=== PATIENT | female | born 1970 | race Caucasian/White ===

== ENCOUNTER 2019-04-15 14:42 | Inpatient (IN) | payer MEDICARE, MEDICAID ==
[~2019-04-15] VITALS: Ht 154.9 cm; Wt 74.8 kg
--- NOTE | 2019-04-15 14:42 | NUR ---
Pt ambulatory to room 1b, and nursnig staff at bedside.
--- NOTE | 2019-04-15 14:47 | NUR ---
Code Stroke activated by .
--- NOTE | 2019-04-15 14:50 | NUR ---
Called Telestroke line, to call back.
--- NOTE | 2019-04-15 14:51 | NUR ---
Pt to CT with ACLS guidelines in place.
--- NOTE | 2019-04-15 14:53 | NUR ---
PT TAKEN TO RADIOLOGY FOR CT SCAN ON PIPE STRESS ENGINEER.
--- NOTE | 2019-04-15 14:54 | NUR ---
RICKY CHEN SPEAKING W/ DR. WILSON ON PHONE.
[2019-04-15] MEDS ORDERED: GLIPIZIDE (14:58)
[2019-04-15] MEDS ORDERED: METFORMIN (14:58)
[2019-04-15] MEDS ORDERED: SWABABLE VALVE TRANSFER SET EA MC ONE (15:00)
[2019-04-15] MEDS ORDERED: IOHEXOL 350 100 ML INFUS..BTL ONE (15:00)
--- NOTE | 2019-04-15 15:08 | NUR ---
PT BACK IN ER FROM RADIOLOGY. CIVIL ENGINEERING DESIGNER AT BEDSIDE.
[2019-04-15] MEDS ORDERED: IV NORMAL SALINE 250 ML IV ONE (15:14)
--- NOTE | 2019-04-15 15:14 | NUR ---
TELE STROKE NEUROLOGIST EVALUATING PT.
[2019-04-15 15:17] LABS: BASOPHILS % (AUTO) 0.5 % (0.0-2.0); EOSINOPHILS # (AUTO) 0.2 K/uL (0.0-0.7); EOSINOPHILS % (AUTO) 2.3 % (0.0-7.0); HEMOGLOBIN 12.3 g/dL (10.9-14.3); LYMPHOCYTES # (AUTO) 2.7 K/uL (20.0-40.0); LYMPHOCYTES % (AUTO) 40.2 % (20.5-51.5); MEAN CORPUSCULAR HEMOGLOBIN 26.7 uug (24.7-32.8); MEAN CORPUSCULAR HGB CONC 32 g/dL (32.3-35.6); MEAN CORPUSCULAR VOLUME 82.7 fL (75.5-95.3); MONOCYTES # (AUTO) 0.5 K/uL (2.0-10.0); MONOCYTES % (AUTO) 6.8 % (0.0-11.0); NEUTROPHILS # (AUTO) 3.4 K/uL (1.8-8.9); NEUTROPHILS % (AUTO) 50.2 % (38.5-71.5); PLATELET COUNT (AUTO) 221 K/uL (179-408); RED BLOOD CELL COUNT(AUTO) 4.59 MIL/uL (3.63-4.92); WHITE BLOOD COUNT (AUTO) 6.7 K/uL (3.8-11.8)
[2019-04-15 15:25] LABS: CREATININE 0.7 mg/dL (0.6-1.3); POTASSIUM 3.8 mmol/L (3.5-5.1)
--- NOTE | 2019-04-15 15:26 | NUR ---
MAIA speaking with Dr. Knight (TELESTROKE)
--- NOTE | 2019-04-15 15:40 | NUR ---
RICKY CHEN AT BEDSIDE FOR PT UPDATE.
--- NOTE | 2019-04-15 16:32 | NUR ---
PAGED EPIC FOR PANEL CALL - AWAITING CALLBACK. ATTEMPT 1.
--- NOTE | 2019-04-15 16:42 | NUR ---
ER SPEAKING W/ DR. REDDING RE PT'S ADMISSION.
--- NOTE | 2019-04-15 16:58 | NUR ---
ADMITTING REPORT GIVEN TO DICK IVERSON.
[2019-04-15] MEDS ORDERED: ASPIRIN 325 MG TABLET PO ONE (17:00)
[2019-04-15] MEDS ORDERED: ASPIRIN 325 MG TABLET ONE (17:10)
--- NOTE | 2019-04-15 17:11 | NUR ---
Pt. admitted to TELE 316, under care of Dr. WONG. Belongs List completed
[2019-04-15 17:30] VITALS: BP 147/85
--- NOTE | 2019-04-15 17:38 | NUR ---
ADMITTED FROM HOME VIA ER A 48 YO FEMALE WITH ADMITTING DX OF CVA. AWAKE ALERT AND ORIENTED X3, ABLE TO AMBULATE FROM WITH STEADY GAIT, NO SS OF HEADACHE, DIZZINESS, N/V. STROKE PROTOCOL INITIATED, SR ON MONITOR. WILL NOTIFY DR Eusebio WONG OF ADMISSION
--- NOTE | 2019-04-15 17:50 | NUR ---
TEXTED DR. OLMOS FOR MRI APPROVAL.
--- NOTE | 2019-04-15 17:54 | NUR ---
DR. OLMOS TEXTED BACK, ON HOLD FOR NOW HE WILL LET US KNOW
[2019-04-15 18:17] LABS: ALANINE AMINOTRANSFERASE 15 U/L (14-59); ALKALINE PHOSPHATASE 91 U/L (50-136); ASPARTATE AMINOTRANSFERASE 6 U/L (15-37); BILIRUBIN,DIRECT < 0.1 mg/dL (0.0-0.2); BILIRUBIN,TOTAL 0.1 mg/dL (0.2-1.0); TOTAL PROTEIN, SERUM 6.5 g/dL (6.4-8.2)
[2019-04-15 18:38] LABS: THYROID STIMULATING HORMONE 2.122 mIU/mL (0.358-3.740)
[2019-04-15] MEDS ORDERED: LORAZEPAM 1 MG TABLET PO ONE (19:00)
[2019-04-15 20:17] VITALS: BP 121/78
[2019-04-15] MEDS: BLOOD SUGAR DIAGNOSTIC 1 EACH STRIP VI SCH (20:41)
[2019-04-15] MEDS ORDERED: SIMVASTATIN 40 MG TABLET PO SCH (21:00)
[2019-04-15] MEDS ORDERED: ENOXAPARIN SODIUM 40 MG/0.4 ML DISP.SYRIN SQ SCH (21:00)
--- NOTE | 2019-04-15 21:10 | NUR ---
PATIENT ALERT ORIENTED, NO SOB NO CHEST PAIN, TELE MONITOR SINUS RHYTHM. 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 FAMILY AT BEDSIDE.
--- NOTE | 2019-04-15 22:30 | NUR ---
PATIENT WAS BACK FROM MRI, IN FAIR CONDITION. CONT TO MONITOR.
[2019-04-16 00:05] VITALS: BP 125/62
[2019-04-16 00:06] LABS: *BILIRUBIN,URIN NEGATIVE (NEGATIVE); *BLOOD, URINE NEGATIVE (NEGATIVE); *CLARITY,URINE CLEAR (CLEAR); *COLOR,URINE YELLOW (YELLOW); *KETONES,URINE TRACE (NEGATIVE); *UROBILINOGEN,URINE 0.2 E.U./dl (NORMAL); LEUKOCYTE ESTERASE ,URINE NEGATIVE (NEGATIVE); NITRITE, URINE NEGATIVE (NEGATIVE)
[2019-04-16 00:07] LABS: UGLUCOSE 1+ (NEGATIVE)
[2019-04-16 00:12] LABS: BACTERIA,URINE NONE SEEN /HPF (NONE SEEN); CALCIUM OXALATE CRYSTALS,UR MODERATE /HPF (NONE SEEN); RBC,URINE NONE SEEN /HPF (0-3); SQUAMOUS EPITHELIAL CELL,UR MODERATE /HPF (NONE SEEN); WBC,URINE 0-3 /HPF (0-3)
[2019-04-16 00:21] LABS: *AMPHETAMINE, URINE NEGATIVE (NEGATIVE); *BARBITURATE, URINE NEGATIVE (NEGATIVE); *CANNABINOID, URINE NEGATIVE (NEGATIVE); *COCCAINE, URINE NEGATIVE (NEGATIVE); *OPIATE, URINE NEGATIVE (NEGATIVE); *PHENCYCLIDINE SCREEN,URINE NEGATIVE (NEGATIVE)
[2019-04-16 04:00] VITALS: BP 160/72
[2019-04-16 06:30] LABS: BASOPHILS % (AUTO) 0.5 % (0.0-2.0); EOSINOPHILS # (AUTO) 0.1 K/uL (0.0-0.7); EOSINOPHILS % (AUTO) 2.4 % (0.0-7.0); HEMATOCRIT 39.7 % (31.2-41.9); HEMOGLOBIN 12.9 g/dL (10.9-14.3); LYMPHOCYTES # (AUTO) 2.3 K/uL (20.0-40.0); MEAN CORPUSCULAR HEMOGLOBIN 27.1 uug (24.7-32.8); MEAN CORPUSCULAR HGB CONC 32 g/dL (32.3-35.6); MEAN CORPUSCULAR VOLUME 83.6 fL (75.5-95.3); MONOCYTES # (AUTO) 0.3 K/uL (2.0-10.0); MONOCYTES % (AUTO) 6.5 % (0.0-11.0); NEUTROPHILS # (AUTO) 2.4 K/uL (1.8-8.9); NEUTROPHILS % (AUTO) 45.6 % (38.5-71.5); PLATELET COUNT (AUTO) 212 K/uL (179-408); RED BLOOD CELL COUNT(AUTO) 4.75 MIL/uL (3.63-4.92); WHITE BLOOD COUNT (AUTO) 5.2 K/uL (3.8-11.8)
[2019-04-16 06:31] LABS: CREATININE 0.6 mg/dL (0.6-1.3); POTASSIUM 3.7 mmol/L (3.5-5.1)
[2019-04-16] MEDS: BLOOD SUGAR DIAGNOSTIC 1 EACH STRIP VI SCH (07:40)
--- NOTE | 2019-04-16 07:41 | NUR ---
ALERT AWAKE NO SOB NO CHEST PAIN, CONT TO MONITOR.
--- NOTE | 2019-04-16 08:00 | NUR ---
AWAKE ALERT AND ORIENTED X3 NO SS OF PAIN OR SOB, PER PATIENT NUMBNESS LEFT ARM FEEL BETTER. SR ON MONITOR, RA SATURATION 97%. CLOSELY MONITORED
[2019-04-16] MEDS ORDERED: ASPIRIN EC 81 MG TABLET.DR PO SCH (09:00)
[2019-04-16] MEDS ORDERED: DEXTROSE 50% 50 ML DISP.SYRIN IV PRN (10:30)
[2019-04-16] MEDS ORDERED: INSULIN REGULAR, HUMAN 300 UNIT/3 ML VIAL SQ PRN (10:30)
[2019-04-16] MEDS ORDERED: CARBAMAZEPINE 200 MG TABLET PO SCH ×3 (10:45→21:00)
[2019-04-16] MEDS ORDERED: GABAPENTIN 300 MG CAPSULE PO SCH ×2 (10:45→21:00)
--- NOTE | 2019-04-16 11:00 | NUR ---
SEEN BY Yohana THURSTON, MADE AWARE OF RAPID RESPONSE LAST NIGHT AND HYPOTENSION DURING PHYSICAL THERAPY SEE NOTES. WILL CONTINUE TO OBSERVE Addendum: 04/16/19 at 1406 by TERESA LESLIE RN ERROR
[2019-04-16 11:01] VITALS: BP 141/76
[2019-04-16] MEDS ORDERED: BLOOD SUGAR DIAGNOSTIC 1 EACH STRIP VI SCH (11:30)
[2019-04-16] MEDS ORDERED: SIMV40TA5 PO (12:00)
[2019-04-16] MEDS ORDERED: ASPI-618 PO (12:00)
--- NOTE | 2019-04-16 12:10 | NUR ---
1200 TEGRETOL NOT GIVEN DUE TO FIRST DOSE GIVEN AT 1121
--- NOTE | 2019-04-16 16:10 | NUR ---
Patient discharged. Discharge instructions reviewed, patient verbalized understanding. IV access and wristband removed.
[2019-04-16] MEDS ORDERED: METFORMIN HCL 500 MG TABLET PO SCH (18:00)
[2019-04-17] MEDS ORDERED: GLIMEPIRIDE 4 MG TABLET PO SCH (08:00)
== END 2019-04-16 16:10 | disposition home or self-care (01) | DRG 69 ==
LOC: ER 14:42 → TELE3 17:16 → UNDODISIN 04-16 13:24 → MEDSURG3 04-16 13:37
DX: G45.9 Transient cerebral ischemic attack, unspecified (principal); R47.01 Aphasia; G40.909 Epilepsy, unspecified, not intractable, without status epilepticus; E11.9 Type 2 diabetes mellitus without complications; E66.9 Obesity, unspecified; R29.700 NIHSS score 0; Z79.84 Long term (current) use of oral hypoglycemic drugs; G93.89 Other specified disorders of brain; E78.1 Pure hyperglyceridemia; I69.398 Other sequelae of cerebral infarction; O02.1 Missed abortion; Q17.9 Congenital malformation of ear, unspecified
CPT/HCPCS: 36415; 70030-TC; 70450; 70496; 70551; 71045; 80307; 84443; 85025; 85651; 85730; 92526; 92610; 93005; 93307; 97116; 97165; 97530; 97535; A4663; G0378; J1650; J1815; J7050; Q9967

== ENCOUNTER 2020-02-05 09:18 | Emergency (ER) | payer MEDICARE, OTHER ==
[~2020-02-05] VITALS: Ht 154.9 cm; Wt 74.8 kg
--- NOTE | 2020-02-05 09:32 | NUR ---
@bedside, MSE in progress
--- NOTE | 2020-02-05 09:42 | NUR ---
Patient discharged to home in stable condition & steady gait. Written and verbal after care instructions given to patient. Patient verbalized understanding & compliance of instructions.
== END 2020-02-05 09:43 | disposition home or self-care (01) ==
LOC: ER 09:18
DX: B30.8 Other viral conjunctivitis (principal); E11.9 Type 2 diabetes mellitus without complications; Z79.82 Long term (current) use of aspirin
CPT/HCPCS: A4663

== ENCOUNTER 2021-05-15 12:37 | Inpatient (IN) | payer MEDICARE, OTHER ==
[~2021-05-15] VITALS: Ht 152.4 cm; Wt 79.4 kg
[~2021-05-15 12:37] MED LIST: ASPI-618 PO; GLIPIZIDE; METFORMIN PO; SIMV-49 PO
--- NOTE | 2021-05-15 12:57 | NUR ---
DR MCMAHAN AT BEDSIDE FOR EVALUATION.
[2021-05-15 13:29] LABS: HEMATOCRIT 36.8 % (31.2-41.9); MEAN CORPUSCULAR HEMOGLOBIN 27.6 uug (24.7-32.8); MEAN CORPUSCULAR VOLUME 83.8 fL (75.5-95.3); PLATELET COUNT (AUTO) 221 K/uL (179-408)
[2021-05-15 13:42] LABS: ALANINE AMINOTRANSFERASE 24 U/L (14-59); ALKALINE PHOSPHATASE 94 U/L (50-136); ASPARTATE AMINOTRANSFERASE 12 U/L (15-37); BILIRUBIN,DIRECT < 0.1 mg/dL (0.0-0.2); BILIRUBIN,TOTAL 0.1 mg/dL (0.2-1.0); CARBON DIOXIDE 27 mmol/L (21-32); CHLORIDE 102 mmol/L (98-107); CREATININE 0.7 mg/dL (0.6-1.3); GLUCOSE 247 mg/dL (74-106); LIPASE 74 U/L (73-393); POTASSIUM 3.7 mmol/L (3.5-5.1); TOTAL PROTEIN, SERUM 6.8 g/dL (6.4-8.2); UREA NITROGEN, BLOOD 19 mg/dL (7-18)
[2021-05-15 14:35] LABS: *BILIRUBIN,URIN NEGATIVE (NEGATIVE); *BLOOD, URINE NEGATIVE (NEGATIVE); *COLOR,URINE YELLOW (YELLOW); *KETONES,URINE TRACE (NEGATIVE); *UROBILINOGEN,URINE 0.2 E.U./dl (NORMAL); LEUKOCYTE ESTERASE ,URINE NEGATIVE (NEGATIVE); NITRITE, URINE NEGATIVE (NEGATIVE); PH,URINE 5.5 (5.0-8.0)
[2021-05-15 14:39] LABS: UGLUCOSE 3+ (NEGATIVE)
[2021-05-15 14:42] LABS: *CLARITY,URINE HAZY (CLEAR); BACTERIA,URINE FEW /HPF (NONE SEEN); RBC,URINE 0-3 /HPF (0-3); SQUAMOUS EPITHELIAL CELL,UR MODERATE /HPF (NONE SEEN); URINE AMORPHOUS URATE FEW /HPF
[2021-05-15] MEDS ORDERED: MECLIZINE HCL 25 MG TABLET PO ONE (15:00)
[2021-05-15] MEDS ORDERED: MECLIZINE HCL 25 MG TABLET ONE (15:01)
[2021-05-15] MEDS ORDERED: IOHEXOL 350 100 ML INFUS..BTL ONE (19:16)
--- NOTE | 2021-05-15 19:30 | NUR ---
Pt taken down for CT
--- NOTE | 2021-05-15 19:53 | NUR ---
Pt returned from CT stable condition.
[2021-05-15] MEDS ORDERED: SIMVASTATIN 40 MG TABLET PO SCH (21:00)
[2021-05-15] MEDS ORDERED: SIMVASTATIN 40 MG TABLET ONE (21:25)
--- NOTE | 2021-05-15 21:59 | NUR ---
Gave report to Will digital producer.
--- NOTE | 2021-05-15 22:40 | NUR ---
Pt. admitted to Med Surg , under care of EYE GLASS FRAME POLISHER Roberto Alcantar Dx: intractable vertigo Belongs List completed
--- NOTE | 2021-05-15 22:41 | NUR ---
PATIENT ALERT ORIENTED, NO SOB NO CHEST PAIN, PATIENT HAS NO COMPLAIN OF DIZZINESS AT THIS TIME. PATIENT NO COMPLAIN OF PAIN, CALL LIGHT WITHIN REACH.
[2021-05-15] MEDS ORDERED: ACETAMINOPHEN 325 MG TABLET PO PRN (23:00)
[2021-05-15] MEDS ORDERED: DIAZEPAM 5 MG TABLET PO PRN (23:00)
[2021-05-15] MEDS ORDERED: MECLIZINE HCL 25 MG TABLET PO PRN (23:00)
[2021-05-15] MEDS ORDERED: IV NS 1000 ML 1,000 ML IV PRN (23:00)
[2021-05-15] MEDS ORDERED: ONDANSETRON 4 MG/2 ML VIAL IV PRN (23:00)
[2021-05-15 23:14] VITALS: BP 149/73
[2021-05-16 05:05] VITALS: BP 148/55
--- NOTE | 2021-05-16 06:28 | NUR ---
PATIENT ASLEEP BUT AROUSABLE NO COMPLAIN OF PAIN, NO VERTIGO OR DIZZINESS AT THIS TIME, PATIENT CLAIMED THAT SHE HAD BUZZING SOUND ON HER HEAR BEFORE SHE CAME IN TO THE THE ER. CONT TO MONITOR. VOIDING WELL.
[2021-05-16 06:31] LABS: HEMATOCRIT 38.8 % (31.2-41.9); PLATELET COUNT (AUTO) 224 K/uL (179-408)
[2021-05-16 06:53] LABS: ALANINE AMINOTRANSFERASE 19 U/L (14-59); ALKALINE PHOSPHATASE 94 U/L (50-136); ASPARTATE AMINOTRANSFERASE 12 U/L (15-37); BILIRUBIN,TOTAL 0.1 mg/dL (0.2-1.0); CARBON DIOXIDE 29 mmol/L (21-32); CHLORIDE 107 mmol/L (98-107); CHOLESTEROL 229 mg/dL (<200); CREATININE 0.5 mg/dL (0.6-1.3); GLUCOSE 235 mg/dL (74-106); HDL CHOLESTEROL 53 mg/dL (40-60); PHOSPHOROUS 3.6 mg/dL (2.5-4.9); POTASSIUM 3.9 mmol/L (3.5-5.1); TOTAL PROTEIN, SERUM 6.7 g/dL (6.4-8.2); TRIGLYCERIDES 300 MG/DL (30-150); UREA NITROGEN, BLOOD 11 mg/dL (7-18)
--- NOTE | 2021-05-16 08:00 | NUR ---
RECEIVED CHANGE OF SHIFT REPORT, PT IN BED RESTING, C/O DIZZINESS, PT A/OX4, ON ROOM AIR, NO SIGNS OF DISTRESS, NO REPORTS OF PAIN, CALL LIGHT WITHIN REACH, BED LOW AND LOCKED. PT AMB WITH STEADY GAIT, BRP, IV ON THE RIGHT FA 22G INFUSING NS AT 75CC. WILL CONTINUE WITH PLAN OF CARE.
[2021-05-16 08:04] VITALS: BP 144/79
[2021-05-16 11:08] VITALS: BP 150/78
[2021-05-16] MEDS ORDERED: MECL-159 PO (11:09)
[2021-05-16 15:38] VITALS: BP 126/64
--- NOTE | 2021-05-16 19:14 | NUR ---
pt discharged form hospital with all belongings. pt ambulatory, vitals WNL, on room air, no signs of distress, no reports of pain. pt left via private car with friend. pt given exit care instructions, pt verbalized understanding. all needs met this shift, all medications given as ordered.
== END 2021-05-16 18:30 | disposition home or self-care (01) | DRG 149 ==
LOC: ER 12:37 → MEDSURG3 22:12
PROVIDERS: ADMIT Nurse Practitioner Acute Care; ATTEND Nurse Practitioner Acute Care
DX: H81.10 Benign paroxysmal vertigo, unspecified ear (principal); E87.2 Acidosis; Z86.73 Personal history of transient ischemic attack (TIA), and cerebral infarction without residual deficits; Z79.84 Long term (current) use of oral hypoglycemic drugs; E66.9 Obesity, unspecified; E78.5 Hyperlipidemia, unspecified; G93.89 Other specified disorders of brain; Z79.82 Long term (current) use of aspirin; Z20.822 Contact with and (suspected) exposure to COVID-19; E11.65 Type 2 diabetes mellitus with hyperglycemia; Z68.34 Body mass index [BMI] 34.0-34.9, adult
CPT/HCPCS: 36415; 70030-TC; 70450; 70496; 71045; 83605; 83690; 83735; 84100; 85025; 87086; 93005; A4663; G0378; J7030; J8597; Q9967

== ENCOUNTER 2021-10-22 09:59 | Inpatient (IN) | payer MEDICARE, OTHER ==
[~2021-10-22] VITALS: Ht 154.9 cm; Wt 68.7 kg
[~2021-10-22 09:59] MED LIST changes: -ASPI-618 PO; -GLIPIZIDE; +MECL-159 PO
[2021-10-22] MEDS ORDERED: ASPIRIN 81 MG TAB.CHEW PO ONE (10:00)
--- NOTE | 2021-10-22 10:01 | NUR ---
DR. SOLORIO ACTIVATED CODE STROKE
--- NOTE | 2021-10-22 10:06 | NUR ---
tele neurology activated.
--- NOTE | 2021-10-22 10:06 | NUR ---
tele neurology activated.
--- NOTE | 2021-10-22 10:08 | NUR ---
pt to ct.
[2021-10-22 10:11] LABS: HEMATOCRIT 40.2 % (31.2-41.9); MEAN CORPUSCULAR HEMOGLOBIN 26.8 uug (24.7-32.8); MEAN CORPUSCULAR VOLUME 82.2 fL (75.5-95.3); PLATELET COUNT (AUTO) 227 K/uL (179-408)
[2021-10-22] MEDS ORDERED: IOHEXOL 350 100 ML INFUS..BTL ONE (10:21)
[2021-10-22] MEDS ORDERED: IV NORMAL SALINE 250 ML IV ONE (10:21)
[2021-10-22] MEDS ORDERED: SWABABLE VALVE TRANSFER SET EA MC ONE (10:21)
--- NOTE | 2021-10-22 10:25 | NUR ---
Anthony lloyd in EDM - 10/22/21 at [address] MACIEL FROM TELE STROKE CALLED, TALKED TO RICKY RODRÍGUEZ
--- NOTE | 2021-10-22 10:25 | NUR ---
DR. MACIEL, NEUROLOGIST CALLED AND TALKED TO RICKY CHEN.
[2021-10-22 10:28] LABS: ALANINE AMINOTRANSFERASE 186 U/L (14-59); ALKALINE PHOSPHATASE 135 U/L (50-136); ASPARTATE AMINOTRANSFERASE 83 U/L (15-37); BILIRUBIN,TOTAL 0.2 mg/dL (0.2-1.0); CARBON DIOXIDE 27 mmol/L (21-32); CHLORIDE 98 mmol/L (98-107); CHOLESTEROL 197 mg/dL (<200); CREATININE 0.8 mg/dL (0.6-1.3); HDL CHOLESTEROL 76 mg/dL (40-60); POTASSIUM 4.4 mmol/L (3.5-5.1); TOTAL PROTEIN, SERUM 7.7 g/dL (6.4-8.2); TRIGLYCERIDES 91 MG/DL (30-150); UREA NITROGEN, BLOOD 16 mg/dL (7-18)
--- NOTE | 2021-10-22 10:28 | NUR ---
PT BACK FROM CT. TELE MED NEUROLOGIST COMMUNICATING WITH PT VIA TELE STROKE MONITOR.
[2021-10-22 10:29] LABS: BILIRUBIN,DIRECT < 0.1 mg/dL (0.0-0.2)
[2021-10-22 10:30] LABS: GLUCOSE 412 mg/dL (74-106)
[2021-10-22] MEDS ORDERED: INSULIN REGULAR, HUMAN 300 UNIT/3 ML VIAL SQ ONE (10:45)
[2021-10-22] MEDS ORDERED: ASPIRIN EC 81 MG TABLET.DR PO ONE (10:48)
[2021-10-22] MEDS ORDERED: ASPIRIN 81 MG TAB.CHEW ONE (10:49)
--- NOTE | 2021-10-22 10:54 | NUR ---
PT'S SON AT BEDSIDE.
[2021-10-22] MEDS ORDERED: INSULIN REGULAR, HUMAN 300 UNIT/3 ML VIAL ONE (10:55)
--- NOTE | 2021-10-22 11:14 | NUR ---
BEDPAN PROVIDED FOR PT PER REQUEST, PT ABLE TO LIFT/MOVE ALL THE EXTREMETIES TO ACCOMMODATE BED CONWAY PLACEMENT, URINE SENT TO LAB.
[2021-10-22] MEDS ORDERED: GABA300C PO (11:19)
[2021-10-22] MEDS ORDERED: METF-442 PO (11:19)
[2021-10-22] MEDS ORDERED: GLIM4TAB37 PO (11:19)
[2021-10-22] MEDS ORDERED: HUM100IN SQ (11:19)
[2021-10-22] MEDS ORDERED: ATOR40TA PO (11:19)
[2021-10-22] MEDS ORDERED: ACAR50TA4 PO (11:19)
[2021-10-22] MEDS ORDERED: CARB200T PO ×2 (11:19)
[2021-10-22 11:32] LABS: *AMPHETAMINE, URINE NEGATIVE (NEGATIVE); *CANNABINOID, URINE NEGATIVE (NEGATIVE); *COCCAINE, URINE NEGATIVE (NEGATIVE); *OPIATE, URINE NEGATIVE (NEGATIVE); *PHENCYCLIDINE SCREEN,URINE NEGATIVE (NEGATIVE)
--- NOTE | 2021-10-22 12:27 | NUR ---
PT RESTING, AROUSABLE. NO SIGN OF DISTRESS AT THIS POINT.
--- NOTE | 2021-10-22 12:56 | NUR ---
PT FAMILY MEMBER AT BEDSIDE, TALKING TO PT. EARINGS AND PT'S MED BOTTLES SENT HOME WITH FAMILY MEMBER.
--- NOTE | 2021-10-22 13:16 | NUR ---
PT TRANSFERED TO FLOOR IN STABLE CONDITION.
[2021-10-22 14:00] VITALS: BP 134/69
--- NOTE | 2021-10-22 14:00 | NUR ---
Left side weakness noted. unable to recognize any facial drooping. Skin dry and intact. Plan of care implemented for fall precautions. Pt agreeable with plan. Call light is within reach.
[2021-10-22 16:00] VITALS: BP 141/69
[2021-10-22] MEDS ORDERED: DEXTROSE 50% 50 ML DISP.SYRIN IV PRN (16:45)
[2021-10-22] MEDS ORDERED: ACARBOSE 50 MG TABLET PO SCH ×2 (17:00)
--- NOTE | 2021-10-22 17:00 | NUR ---
Notified pt and family to bring own meds acarbose. Verbalized understanding and agreeable.
[2021-10-22] MEDS: GABAPENTIN 300 MG CAPSULE PO SCH (17:38)
[2021-10-22] MEDS: BLOOD SUGAR DIAGNOSTIC 1 EACH STRIP VI SCH ×2 (17:43→20:51)
[2021-10-22] MEDS: INSULIN REGULAR, HUMAN 300 UNIT/3 ML VIAL SQ PRN ×2 (17:44→20:31)
[2021-10-22] MEDS: CARBAMAZEPINE 200 MG TABLET PO SCH ×2 (17:45→21:02)
[2021-10-22] MEDS: ENOXAPARIN SODIUM 40 MG/0.4 ML DISP.SYRIN SQ SCH (17:50)
[2021-10-22] MEDS: DIAZEPAM 5 MG TABLET PO PRN ×2 (18:07→20:08)
--- NOTE | 2021-10-22 19:30 | NUR ---
Received patient resting in bed. AA) x4, she is east timorese speaking. States she began to feel ill during work. Began to trip on her own feet, feel sleepy, have back pain and dizziness. She has HX of epilepsy, DM, and previous CVA (April 2020). 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 States weakness to left side is increased as of this morning. No visual changes noted on assessment, there is facial symmetry, no drooping noted. States she was able to ambulate with assist earlier this shift. Son will bring Acarbose tomorrow. Needs assessed and met. Safety measures initiated, call light within reach.
[2021-10-22 20:20] VITALS: BP 136/72
[2021-10-22] MEDS ORDERED: BLOOD SUGAR DIAGNOSTIC 1 EACH STRIP VI SCH (21:00)
[2021-10-22] MEDS ORDERED: ATORVASTATIN 40 MG TABLET PO SCH (21:00)
[2021-10-23 04:20] VITALS: BP 103/62
[2021-10-23] MEDS: CARBAMAZEPINE 200 MG TABLET PO SCH ×2 (06:17→12:00)
[2021-10-23] MEDS: DIAZEPAM 5 MG TABLET PO PRN (06:17)
[2021-10-23] MEDS: PANTOPRAZOLE SODIUM 40 MG TABLET.DR PO SCH ×2 (06:17→08:20)
[2021-10-23] MEDS: BLOOD SUGAR DIAGNOSTIC 1 EACH STRIP VI SCH ×4 (06:30→20:57)
--- NOTE | 2021-10-23 06:43 | NUR ---
Slept well this shift. AAO x4, Neuro checks continued. Continues with left side weakness. Seizure, fall precautions, and safety measures continued. ON RA, no SOB. On telemetry, NSR HR 70, no abnormalities this shift. C/O headache and dizziness this AM, Valium Po provided. Call light within reach.
[2021-10-23 07:16] LABS: MEAN CORPUSCULAR HEMOGLOBIN 26.8 uug (24.7-32.8); MEAN CORPUSCULAR VOLUME 81.1 fL (75.5-95.3); PLATELET COUNT (AUTO) 235 K/uL (179-408)
[2021-10-23 07:29] LABS: CARBON DIOXIDE 28 mmol/L (21-32); CHLORIDE 101 mmol/L (98-107); CREATININE 0.5 mg/dL (0.6-1.3); GLUCOSE 196 mg/dL (74-106); POTASSIUM 3.8 mmol/L (3.5-5.1); UREA NITROGEN, BLOOD 11 mg/dL (7-18)
--- NOTE | 2021-10-23 07:36 | NUR ---
Received patient report from slot shift supervisor nurse. Patient is alert, oriented x 4. Comfort measures provided. Bed left in lowest position with call light within reach. Will continue to monitor patient. Patient scheduled to receive MRI w/ no contrast at [facility]. IV site intact and patent.
[2021-10-23 08:00] VITALS: BP 145/77
[2021-10-23] MEDS: ASPIRIN EC 81 MG TABLET.DR PO SCH (08:19)
[2021-10-23] MEDS: DOCUSATE SODIUM 100 MG CAPSULE PO SCH (08:20)
[2021-10-23] MEDS: GABAPENTIN 300 MG CAPSULE PO SCH (08:20)
[2021-10-23] MEDS: INSULIN REGULAR, HUMAN 300 UNIT/3 ML VIAL SQ PRN ×2 (08:38→11:40)
[2021-10-23] MEDS ORDERED: diphenhydrAMINE 50 MG/1 ML VIAL IM ONE (09:00)
[2021-10-23] MEDS ORDERED: GLIMEPIRIDE 4 MG TABLET PO SCH (09:00)
[2021-10-23] MEDS ORDERED: PROCHLORPERAZINE EDISYLATE 10 MG/2 ML VIAL IM ONE (09:00)
[2021-10-23] MEDS: ENOXAPARIN SODIUM 40 MG/0.4 ML DISP.SYRIN SQ SCH (09:33)
[2021-10-23 11:28] LABS: *URINE HCG, QUAL POSITIVE (NEGATIVE)
--- NOTE | 2021-10-23 12:02 | NUR ---
Patient left the unit at 11:45 am for MRI in the head at [facility]. MAVERICK Motta from [employer] arrived in the unit to pick patient up and take her to her appointment.
--- NOTE | 2021-10-23 13:17 | NUR ---
Patient came back to the unit at 13:15 from [place] for MRI (head).
--- NOTE | 2021-10-23 14:52 | NUR ---
UA was collected at 11:00 am and sent it to lab.
--- NOTE | 2021-10-23 15:01 | NUR ---
Received patient awake in her room. A/O X 4 to person, place, situation. pt. affect is cooperative and sociable. Compliant with medications. Pt. was given PRN Benadryl 25 mg IM and Compazine 10 mg IM for headache ordered by boris Wallis. Ecocardiogram was done at 14:30. MRI results presents no abnormalities. Carotids results presents no abnormalities. Blood glucose 319, 16 units given, snacks provided. Ambulates with walker. Continent of bladder and bowel. Pt. is encourage to verbalize concerns. Fall and safety precautions implemented.
--- NOTE | 2021-10-23 15:59 | NUR ---
Clinical Social Work Note SW consult was requested for a stroke. Patient is a 50 year old female who is alert and oriented x4. Patient presents with a normal mood and congruent affect. SW meet with patient and conducted the PHQ9 post stroke depression screening and patient scored (3) and patient was provided with educational resources. Personal Service Representative informed about the importance of stroke. Patient accepted stroke referrals such as: Stroke Family Warmline at (2-092-2-STROKE) and Caring for a stroke survivor ( ). licensed social worker also educated patient on the signs of Stroke and to immediately call 911. Personal Service Representative provided patient with a stroke educational packet with information such as; Dietary food, what stroke is, risks, emotional support, finding support, medical management, and effects of stroke.
[2021-10-23 16:00] VITALS: BP 129/77
[2021-10-23] MEDS: INSULIN REGULAR, HUMAN 300 UNITS/3 ML VIAL SQ PRN ×2 (17:07→20:59)
--- NOTE | 2021-10-23 17:08 | NUR ---
Patient blood glucose is 262, 6 units of regular insulin given per sliding scale.
--- NOTE | 2021-10-23 19:30 | NUR ---
Received patient resting in bed. AAO x4, iranian speaking. States weakness to left side is less than yesterday. Also states she is free of headache and has only minimal dizziness. No visual changes noted on assessment, there is facial symmetry, no drooping noted. States she was able to ambulate with assist using walker. On RA, no SOB. Needs assessed and met. Safety measures initiated, call light within reach.
[2021-10-23 20:25] VITALS: BP 132/65
[2021-10-24 00:06] VITALS: BP 120/73
[2021-10-24 04:20] VITALS: BP 137/70
--- NOTE | 2021-10-24 05:57 | NUR ---
Slept well, easily woken. Denies any pain or discomfort. Per patient weakness to left side is improving, Neuro checks unchanged. On Telemetry, NSR HR 70. Call light within reach.
[2021-10-24] MEDS: BLOOD SUGAR DIAGNOSTIC 1 EACH STRIP VI SCH ×2 (06:31→11:28)
[2021-10-24 08:30] VITALS: BP 132/84
[2021-10-24] MEDS: DOCUSATE SODIUM 100 MG CAPSULE PO SCH (09:04)
[2021-10-24] MEDS: ASPIRIN EC 81 MG TABLET.DR PO SCH (09:04)
[2021-10-24] MEDS: INSULIN REGULAR, HUMAN 300 UNIT/3 ML VIAL SQ PRN ×2 (09:08→11:30)
--- NOTE | 2021-10-24 09:30 | NUR ---
pt is d/cd from telemetry. Discharge to follow pending lab results. Pt not in acute distress, call light within reach. pt is ambulatory, no complaint of weakness, headache or numbness in extremities. pt is able to hold up right lower extremity and right upper extremity >10 seconds, left upper holds for >10, left lower for 5 seconds.
[2021-10-24 09:50] LABS: HEMATOCRIT 41.8 % (31.2-41.9); MEAN CORPUSCULAR HEMOGLOBIN 26.7 uug (24.7-32.8); MEAN CORPUSCULAR VOLUME 81.5 fL (75.5-95.3); PLATELET COUNT (AUTO) 224 K/uL (179-408)
[2021-10-24 10:06] LABS: CREATININE 0.6 mg/dL (0.6-1.3); POTASSIUM 4.3 mmol/L (3.5-5.1)
[2021-10-24 10:28] LABS: THYROID STIMULATING HORMONE 3.844 mIU/mL (0.358-3.740)
[2021-10-24] MEDS ORDERED: ASPI-618 PO ×2 (11:03→11:22)
[2021-10-24] MEDS ORDERED: LEVE500T9 PO ×2 (11:11→11:22)
[2021-10-24 12:00] VITALS: BP 145/76
--- NOTE | 2021-10-24 14:08 | NUR ---
Pt is discharged. HCG is 31. Discharge instructions, diagnosis education given to patient. Pt leaving via private car with family to her home. Pt is a/o x 4, no signs of acute distress or signs of stroke. Pt is ambulatory, steady on her feet, agreed to be wheeled down to ride. No complaint of pain, or new onset weakness present at this time.
== END 2021-10-24 13:50 | disposition home or self-care (01) | DRG 149 ==
LOC: ER 09:59 → TELE3 13:11
PROVIDERS: ADMIT Nurse Practitioner Acute Care; ATTEND Nurse Practitioner Family
DX: H81.399 Other peripheral vertigo, unspecified ear (principal); R47.01 Aphasia; G40.909 Epilepsy, unspecified, not intractable, without status epilepticus; E11.65 Type 2 diabetes mellitus with hyperglycemia; Z79.4 Long term (current) use of insulin; Z20.822 Contact with and (suspected) exposure to COVID-19; E78.5 Hyperlipidemia, unspecified; Z79.82 Long term (current) use of aspirin; R74.01 Elevation of levels of liver transaminase levels; G43.109 Migraine with aura, not intractable, without status migrainosus; Z79.84 Long term (current) use of oral hypoglycemic drugs; R78.89 Finding of other specified substances, not normally found in blood; R53.1 Weakness; Z86.73 Personal history of transient ischemic attack (TIA), and cerebral infarction without residual deficits
CPT/HCPCS: 36415; 70030-TC; 70450; 70496; 70551; 71045; 84443; 84703; 85025; 85730; 93005; 93307; 93880; 97161; A4663; G0378; J0780; J1200; J1650; J1815; J7050; Q9967

== ENCOUNTER 2022-08-23 09:57 | Emergency (ER) | payer MEDICARE, OTHER ==
[~2022-08-23] VITALS: Ht 154.9 cm; Wt 79.4 kg
[~2022-08-23 09:57] MED LIST changes: +ACAR50TA4 PO; +ASPI-618 PO; +ATOR40TA PO; +GABA300C PO; +GLIM4TAB37 PO; +HUM100IN SQ; +LEVE500T9 PO; -MECL-159 PO; +METF-442 PO; -METFORMIN PO; -SIMV-49 PO
[2022-08-23 10:26] LABS: HEMATOCRIT 38.4 % (31.2-41.9); MEAN CORPUSCULAR HEMOGLOBIN 26.6 uug (24.7-32.8); MEAN CORPUSCULAR VOLUME 81.7 fL (75.5-95.3); PLATELET COUNT (AUTO) 199 K/uL (179-408)
--- NOTE | 2022-08-23 10:30 | NUR ---
Pt arrived with c/o dizziness and generalized body weakness. Pt v/s is stable except for BP 135/66. Denies n/v, no pain and acute discomfort. No injuries. Pt said she is diabetic and is taking insulin, BS is 206. She said that she had breakfast this morning and is compliant with her insulin regimen.
[2022-08-23 10:43] LABS: *URINE HCG, QUAL POSITIVE (NEGATIVE)
[2022-08-23 10:49] LABS: CARBON DIOXIDE 22 mmol/L (21-32); CHLORIDE 103 mmol/L (98-107); CREATININE 0.8 mg/dL (0.6-1.3); GLUCOSE 207 mg/dL (74-106); POTASSIUM 3.8 mmol/L (3.5-5.1); UREA NITROGEN, BLOOD 15 mg/dL (7-18)
--- NOTE | 2022-08-23 10:50 | NUR ---
Pt's urine sample is positive with hcg but pt had already been transported to have CT scan of the head. Confirmed with MAIA Way if he wants to cancel the x-ray, he said he is waiting for the serum quant result first.
[2022-08-23] MEDS ORDERED: ONDANSETRON ODT 4 MG TAB.RAPDIS SL ONE (11:30)
[2022-08-23] MEDS ORDERED: ONDANSETRON ODT 4 MG TAB.RAPDIS ONE (11:34)
--- NOTE | 2022-08-23 11:37 | NUR ---
medicated for nausea. no vomitting.
--- NOTE | 2022-08-23 13:37 | NUR ---
Reminded MAIA about pt's hcg result and if pt is okay or not to proceed for cxr. Dr said 33 is negative and is okay to go and have the cxr. Called radiology for update.
--- NOTE | 2022-08-23 14:20 | NUR ---
Pt discharged to home in stable condition. Written and verbal after care instructions given. Excuse note was provided per pt's request from the ERMD. V/s are wnl, dizziness and n/v were resolved. Pt received diabeti tray, meal was 85% consumed. Pt verbalizes understanding of instructions. Stressed follow up or return to ER for worsening s/s.
[2022-08-23 14:23] VITALS: BP 129/78
== END 2022-08-23 14:29 | disposition home or self-care (01) ==
LOC: ER 09:58
DX: R42 Dizziness and giddiness (principal); G93.89 Other specified disorders of brain; E11.65 Type 2 diabetes mellitus with hyperglycemia; Z79.4 Long term (current) use of insulin; Z79.84 Long term (current) use of oral hypoglycemic drugs; E78.5 Hyperlipidemia, unspecified; G40.909 Epilepsy, unspecified, not intractable, without status epilepticus; I69.320 Aphasia following cerebral infarction; Z86.73 Personal history of transient ischemic attack (TIA), and cerebral infarction without residual deficits; Z79.899 Other long term (current) drug therapy; R03.0 Elevated blood-pressure reading, without diagnosis of hypertension
CPT/HCPCS: 36415; 70450; 71045; 84484; 84703; 85025; 93005; A4663; Q0162

== ENCOUNTER 2023-08-28 12:07 | Inpatient (IN) | payer MEDICARE, OTHER ==
[~2023-08-28] VITALS: Ht 152.4 cm; Wt 73.3 kg
[~2023-08-28 12:07] MED LIST changes: +METH4TAB3 PO
[2023-08-28] MEDS ORDERED: IV NORMAL SALINE 1000 ML BAG IV ONE (12:15)
[2023-08-28 13:58] LABS: CALCIUM 8.9 mg/dL (8.5-10.1); CARBON DIOXIDE 26 mmol/L (21-32); CHLORIDE 101 mmol/L (98-107); CREATININE 0.7 mg/dL (0.6-1.3); GLUCOSE 144 mg/dL (74-106); POTASSIUM 4.2 mmol/L (3.5-5.1); SODIUM SERUM 136 mmol/L (136-145); UREA NITROGEN, BLOOD 13 mg/dL (7-18)
[2023-08-28 14:30] LABS: BASOPHILS % (AUTO) 0.4 % (0.0-2.0); EOSINOPHILS # (AUTO) 0.2 K/uL (0.0-0.7); EOSINOPHILS % (AUTO) 2.6 % (0.0-7.0); HEMATOCRIT 38.8 % (31.2-41.9); HEMOGLOBIN 12.3 g/dL (10.9-14.3); LYMPHOCYTES # (AUTO) 2.7 K/uL (0.8-4.8); LYMPHOCYTES % (AUTO) 42.8 % (20.5-51.5); MEAN CORPUSCULAR HEMOGLOBIN 26.1 uug (24.7-32.8); MEAN CORPUSCULAR HGB CONC 32 g/dL (32.3-35.6); MEAN CORPUSCULAR VOLUME 82.2 fL (75.5-95.3); MONOCYTES # (AUTO) 0.4 K/uL (0.1-1.30); MONOCYTES % (AUTO) 6.8 % (0.0-11.0); NEUTROPHILS % (AUTO) 47.4 % (38.5-71.5); PLATELET COUNT (AUTO) 242 K/uL (179-408); RED BLOOD CELL COUNT(AUTO) 4.72 MIL/uL (3.63-4.92); RED CELL DISTRIBUTION WIDTH 14.2 % (12.3-17.7); WHITE BLOOD COUNT (AUTO) 6.3 K/uL (3.8-11.8)
[2023-08-28 14:34] LABS: DIFFERENTIAL COMMENT N
[2023-08-28 14:54] LABS: ERYTHROCYTE SEDIMENTATION RATE 51 MM/HR (0-20)
[2023-08-28] MEDS ORDERED: DEXTROSE 50% 50 ML DISP.SYRIN IV PRN (16:00)
[2023-08-28] MEDS: BLOOD SUGAR DIAGNOSTIC 1 EACH STRIP VI SCH ×2 (17:15→21:14)
[2023-08-28] MEDS: INSULIN REGULAR, HUMAN 300 UNIT/3 ML VIAL SQ PRN (17:20)
[2023-08-28] MEDS: INSULIN REGULAR, HUMAN 300 UNITS/3 ML VIAL SQ PRN (21:16)
[2023-08-28] MEDS: ENOXAPARIN SODIUM 40 MG/0.4 ML DISP.SYRIN SQ SCH (21:17)
[2023-08-28 22:04] VITALS: BP 108/55; TEMP 98.2; O2SAT 99
[2023-08-29 05:02] VITALS: BP 120/60; TEMP 98.2; O2SAT 100
[2023-08-29] MEDS: BLOOD SUGAR DIAGNOSTIC 1 EACH STRIP VI SCH ×4 (06:32→21:00)
[2023-08-29 06:46] LABS: BASOPHILS % (AUTO) 0.7 % (0.0-2.0); EOSINOPHILS # (AUTO) 0.1 K/uL (0.0-0.7); EOSINOPHILS % (AUTO) 2.4 % (0.0-7.0); HEMATOCRIT 37.9 % (31.2-41.9); HEMOGLOBIN 12.3 g/dL (10.9-14.3); LYMPHOCYTES # (AUTO) 2.2 K/uL (0.8-4.8); LYMPHOCYTES % (AUTO) 40.2 % (20.5-51.5); MEAN CORPUSCULAR HEMOGLOBIN 26.5 uug (24.7-32.8); MEAN CORPUSCULAR HGB CONC 33 g/dL (32.3-35.6); MEAN CORPUSCULAR VOLUME 81.5 fL (75.5-95.3); MONOCYTES # (AUTO) 0.4 K/uL (0.1-1.30); MONOCYTES % (AUTO) 6.8 % (0.0-11.0); NEUTROPHILS # (AUTO) 2.7 K/uL (1.8-8.9); NEUTROPHILS % (AUTO) 49.9 % (38.5-71.5); PLATELET COUNT (AUTO) 245 K/uL (179-408); RED BLOOD CELL COUNT(AUTO) 4.65 MIL/uL (3.63-4.92); RED CELL DISTRIBUTION WIDTH 14.1 % (12.3-17.7); WHITE BLOOD COUNT (AUTO) 5.5 K/uL (3.8-11.8)
[2023-08-29 06:56] LABS: DIFFERENTIAL COMMENT 1
[2023-08-29 06:57] LABS: CALCIUM 8.5 mg/dL (8.5-10.1); CARBON DIOXIDE 28 mmol/L (21-32); CHLORIDE 103 mmol/L (98-107); CREATININE 0.5 mg/dL (0.6-1.3); GLUCOSE 200 mg/dL (74-106); POTASSIUM 4.1 mmol/L (3.5-5.1); SODIUM SERUM 140 mmol/L (136-145); UREA NITROGEN, BLOOD 10 mg/dL (7-18)
[2023-08-29] MEDS ORDERED: ACARBOSE 50 MG TABLET PO SCH (08:00)
[2023-08-29] MEDS: GABAPENTIN 300 MG CAPSULE PO SCH ×2 (08:27→16:38)
[2023-08-29] MEDS: ASPIRIN EC 81 MG TABLET.DR PO SCH (08:27)
[2023-08-29] MEDS: PANTOPRAZOLE SODIUM 40 MG VIAL IV SCH (08:27)
[2023-08-29] MEDS: levETIRAcetam 500 MG TABLET PO SCH ×2 (08:27→16:38)
[2023-08-29] MEDS ORDERED: LORAZEPAM 1 MG TABLET PO ONE (10:15)
[2023-08-29] MEDS: INSULIN REGULAR, HUMAN 300 UNIT/3 ML VIAL SQ PRN ×2 (12:27→16:45)
[2023-08-29 14:37] VITALS: TEMP 97.2
[2023-08-29 15:43] VITALS: TEMP 97.1
[2023-08-29] MEDS ORDERED: CARB200C6 PO ×3 (16:36→16:37)
[2023-08-29] MEDS: CARBAMAZEPINE 200 MG TABLET PO SCH ×2 (18:00→22:21)
[2023-08-29] MEDS: ATORVASTATIN 40 MG TABLET PO SCH (22:19)
[2023-08-29] MEDS: ENOXAPARIN SODIUM 40 MG/0.4 ML DISP.SYRIN SQ SCH (22:22)
[2023-08-29] MEDS: INSULIN REGULAR, HUMAN 300 UNITS/3 ML VIAL SQ PRN (22:36)
[2023-08-30] MEDS: BLOOD SUGAR DIAGNOSTIC 1 EACH STRIP VI SCH ×4 (06:20→20:33)
[2023-08-30 06:36] LABS: CALCIUM 8.6 mg/dL (8.5-10.1); CREATININE 0.6 mg/dL (0.6-1.3); MAGNESIUM 1.9 mg/dL (1.8-2.4); PHOSPHOROUS 3.9 mg/dL (2.5-4.9); POTASSIUM 3.9 mmol/L (3.5-5.1)
[2023-08-30 06:40] LABS: BASOPHILS # (AUTO) 0.1 K/UL (0.0-0.2); BASOPHILS % (AUTO) 0.8 % (0.0-2.0); EOSINOPHILS # (AUTO) 0.2 K/uL (0.0-0.7); EOSINOPHILS % (AUTO) 2.8 % (0.0-7.0); HEMATOCRIT 38.7 % (31.2-41.9); HEMOGLOBIN 12.6 g/dL (10.9-14.3); LYMPHOCYTES # (AUTO) 2.6 K/uL (0.8-4.8); LYMPHOCYTES % (AUTO) 43.6 % (20.5-51.5); MEAN CORPUSCULAR HEMOGLOBIN 26.7 uug (24.7-32.8); MEAN CORPUSCULAR HGB CONC 33 g/dL (32.3-35.6); MONOCYTES # (AUTO) 0.3 K/uL (0.1-1.30); MONOCYTES % (AUTO) 5.1 % (0.0-11.0); NEUTROPHILS # (AUTO) 2.8 K/uL (1.8-8.9); NEUTROPHILS % (AUTO) 47.7 % (38.5-71.5); PLATELET COUNT (AUTO) 223 K/uL (179-408); RED BLOOD CELL COUNT(AUTO) 4.72 MIL/uL (3.63-4.92); WHITE BLOOD COUNT (AUTO) 5.9 K/uL (3.8-11.8)
[2023-08-30 06:59] LABS: DIFFERENTIAL COMMENT 1
[2023-08-30] MEDS: INSULIN REGULAR, HUMAN 300 UNIT/3 ML VIAL SQ PRN ×3 (08:04→16:57)
[2023-08-30] MEDS: PANTOPRAZOLE SODIUM 40 MG VIAL IV SCH (08:30)
[2023-08-30] MEDS: ASPIRIN EC 81 MG TABLET.DR PO SCH (08:30)
[2023-08-30] MEDS: levETIRAcetam 500 MG TABLET PO SCH ×2 (08:30→17:02)
[2023-08-30] MEDS: GABAPENTIN 300 MG CAPSULE PO SCH ×2 (08:31→17:02)
[2023-08-30] MEDS: CARBAMAZEPINE 200 MG TABLET PO SCH ×3 (08:31→20:31)
[2023-08-30] MEDS ORDERED: LORAZEPAM 1 MG TABLET PO ONE (12:00)
[2023-08-30] MEDS ORDERED: GADOTERATE MEGLUMINE 5 MMOL/10 ML VIAL IV ONE (14:17)
[2023-08-30] MEDS: MECLIZINE HCL 25 MG TABLET PO PRN (14:54)
[2023-08-30 15:47] VITALS: TEMP 97.8
[2023-08-30 20:00] VITALS: BP 107/54; TEMP 98.3; O2SAT 93
[2023-08-30] MEDS: ATORVASTATIN 40 MG TABLET PO SCH (20:30)
[2023-08-30] MEDS: ENOXAPARIN SODIUM 40 MG/0.4 ML DISP.SYRIN SQ SCH (20:32)
[2023-08-30] MEDS: INSULIN REGULAR, HUMAN 300 UNITS/3 ML VIAL SQ PRN (20:35)
[2023-08-31 00:03] VITALS: BP 113/66; TEMP 98.6; O2SAT 96
[2023-08-31 04:00] VITALS: BP 122/73; TEMP 97.9; O2SAT 98
[2023-08-31] MEDS: PANTOPRAZOLE SODIUM 40 MG TABLET.DR PO SCH (06:08)
[2023-08-31] MEDS: BLOOD SUGAR DIAGNOSTIC 1 EACH STRIP VI SCH ×4 (07:05→20:13)
[2023-08-31 07:22] LABS: BASOPHILS % (AUTO) 0.7 % (0.0-2.0); EOSINOPHILS # (AUTO) 0.1 K/uL (0.0-0.7); EOSINOPHILS % (AUTO) 2.4 % (0.0-7.0); HEMATOCRIT 37.4 % (31.2-41.9); HEMOGLOBIN 12.5 g/dL (10.9-14.3); LYMPHOCYTES # (AUTO) 2.7 K/uL (0.8-4.8); LYMPHOCYTES % (AUTO) 48.1 % (20.5-51.5); MEAN CORPUSCULAR HEMOGLOBIN 27.1 uug (24.7-32.8); MEAN CORPUSCULAR HGB CONC 33 g/dL (32.3-35.6); MEAN CORPUSCULAR VOLUME 81.3 fL (75.5-95.3); MONOCYTES # (AUTO) 0.4 K/uL (0.1-1.30); MONOCYTES % (AUTO) 6.8 % (0.0-11.0); NEUTROPHILS # (AUTO) 2.4 K/uL (1.8-8.9); PLATELET COUNT (AUTO) 226 K/uL (179-408); RED CELL DISTRIBUTION WIDTH 13.9 % (12.3-17.7); WHITE BLOOD COUNT (AUTO) 5.7 K/uL (3.8-11.8)
[2023-08-31 07:24] LABS: DIFFERENTIAL COMMENT 1
[2023-08-31 07:40] LABS: CALCIUM 8.5 mg/dL (8.5-10.1); CARBON DIOXIDE 29 mmol/L (21-32); CHLORIDE 102 mmol/L (98-107); CREATININE 0.5 mg/dL (0.6-1.3); GLUCOSE 201 mg/dL (74-106); PHOSPHOROUS 3.9 mg/dL (2.5-4.9); POTASSIUM 3.7 mmol/L (3.5-5.1); SODIUM SERUM 136 mmol/L (136-145); UREA NITROGEN, BLOOD 15 mg/dL (7-18)
[2023-08-31] MEDS: INSULIN REGULAR, HUMAN 300 UNIT/3 ML VIAL SQ PRN ×3 (07:40→16:46)
[2023-08-31 08:00] VITALS: BP 122/79; TEMP 97.8; O2SAT 97
[2023-08-31] MEDS: MECLIZINE HCL 25 MG TABLET PO PRN ×2 (08:25→13:06)
[2023-08-31] MEDS: levETIRAcetam 500 MG TABLET PO SCH ×2 (08:25→16:53)
[2023-08-31] MEDS: GABAPENTIN 300 MG CAPSULE PO SCH ×2 (08:25→16:52)
[2023-08-31] MEDS: CARBAMAZEPINE 200 MG TABLET PO SCH ×3 (08:25→20:14)
[2023-08-31] MEDS: ASPIRIN EC 81 MG TABLET.DR PO SCH (08:25)
[2023-08-31] MEDS: CLOPIDOGREL 75 MG TABLET PO SCH (13:43)
[2023-08-31 13:58] LABS: BILIRUBIN,DIRECT 0.1 mg/dL (0.0-0.2); BILIRUBIN,TOTAL 0.2 mg/dL (0.2-1.0)
[2023-08-31 16:00] VITALS: BP 134/68; TEMP 97.7; O2SAT 94
[2023-08-31] MEDS: ATORVASTATIN 40 MG TABLET PO SCH (20:14)
[2023-08-31] MEDS: ENOXAPARIN SODIUM 40 MG/0.4 ML DISP.SYRIN SQ SCH (20:16)
[2023-08-31 20:18] VITALS: BP 140/86; TEMP 97.6; O2SAT 96
[2023-08-31] MEDS: INSULIN REGULAR, HUMAN 300 UNITS/3 ML VIAL SQ PRN (20:18)
[2023-09-01 00:49] VITALS: BP 122/71; TEMP 98; O2SAT 96
[2023-09-01 04:07] VITALS: BP 119/62; TEMP 97.7; O2SAT 96
[2023-09-01] MEDS: PANTOPRAZOLE SODIUM 40 MG TABLET.DR PO SCH (06:29)
[2023-09-01] MEDS: BLOOD SUGAR DIAGNOSTIC 1 EACH STRIP VI SCH ×4 (06:36→20:45)
[2023-09-01 07:11] LABS: BASOPHILS % (AUTO) 0.6 % (0.0-2.0); EOSINOPHILS # (AUTO) 0.1 K/uL (0.0-0.7); EOSINOPHILS % (AUTO) 2.6 % (0.0-7.0); HEMATOCRIT 37.7 % (31.2-41.9); HEMOGLOBIN 12.4 g/dL (10.9-14.3); LYMPHOCYTES % (AUTO) 53.6 % (20.5-51.5); MEAN CORPUSCULAR HEMOGLOBIN 26.8 uug (24.7-32.8); MEAN CORPUSCULAR HGB CONC 33 g/dL (32.3-35.6); MEAN CORPUSCULAR VOLUME 81.4 fL (75.5-95.3); MONOCYTES # (AUTO) 0.4 K/uL (0.1-1.30); MONOCYTES % (AUTO) 7.5 % (0.0-11.0); NEUTROPHILS % (AUTO) 35.7 % (38.5-71.5); PLATELET COUNT (AUTO) 243 K/uL (179-408); RED BLOOD CELL COUNT(AUTO) 4.64 MIL/uL (3.63-4.92); WHITE BLOOD COUNT (AUTO) 5.5 K/uL (3.8-11.8)
[2023-09-01 07:32] LABS: CALCIUM 8.6 mg/dL (8.5-10.1); CARBON DIOXIDE 27 mmol/L (21-32); CHLORIDE 101 mmol/L (98-107); CREATININE 0.5 mg/dL (0.6-1.3); GLUCOSE 183 mg/dL (74-106); MAGNESIUM 1.9 mg/dL (1.8-2.4); PHOSPHOROUS 4.4 mg/dL (2.5-4.9); POTASSIUM 3.8 mmol/L (3.5-5.1); SODIUM SERUM 136 mmol/L (136-145); UREA NITROGEN, BLOOD 12 mg/dL (7-18)
[2023-09-01 07:33] LABS: DIFFERENTIAL COMMENT 1
[2023-09-01 08:00] VITALS: BP 133/72; TEMP 97.8; O2SAT 97
[2023-09-01] MEDS: ASPIRIN EC 81 MG TABLET.DR PO SCH (09:39)
[2023-09-01] MEDS: CLOPIDOGREL 75 MG TABLET PO SCH (09:40)
[2023-09-01] MEDS: levETIRAcetam 500 MG TABLET PO SCH ×2 (09:40→17:35)
[2023-09-01] MEDS: GABAPENTIN 300 MG CAPSULE PO SCH ×2 (09:40→17:35)
[2023-09-01] MEDS: CARBAMAZEPINE 200 MG TABLET PO SCH (09:40)
[2023-09-01] MEDS ORDERED: LORAZEPAM 1 MG TABLET PO ONE (11:15)
[2023-09-01 11:44] VITALS: BP 135/69; TEMP 97.9; O2SAT 96
[2023-09-01] MEDS: INSULIN REGULAR, HUMAN 300 UNIT/3 ML VIAL SQ PRN ×2 (12:07→17:40)
[2023-09-01 16:00] VITALS: BP 134/81; TEMP 97.7; O2SAT 97
[2023-09-01 20:00] VITALS: BP 140/78; TEMP 97.8; O2SAT 97
[2023-09-01] MEDS: ATORVASTATIN 40 MG TABLET PO SCH (20:36)
[2023-09-01] MEDS: ENOXAPARIN SODIUM 40 MG/0.4 ML DISP.SYRIN SQ SCH (20:37)
[2023-09-01] MEDS: INSULIN REGULAR, HUMAN 300 UNITS/3 ML VIAL SQ PRN (20:46)
[2023-09-02 04:00] VITALS: BP 116/66; TEMP 97.7; O2SAT 97
[2023-09-02] MEDS: PANTOPRAZOLE SODIUM 40 MG TABLET.DR PO SCH (06:47)
[2023-09-02] MEDS: BLOOD SUGAR DIAGNOSTIC 1 EACH STRIP VI SCH ×2 (06:49→12:06)
[2023-09-02 07:53] LABS: BASOPHILS # (AUTO) 0.1 K/UL (0.0-0.2); CALCIUM 8.4 mg/dL (8.5-10.1); CREATININE 0.7 mg/dL (0.6-1.3); EOSINOPHILS # (AUTO) 0.1 K/uL (0.0-0.7); EOSINOPHILS % (AUTO) 2.6 % (0.0-7.0); HEMATOCRIT 37.2 % (31.2-41.9); HEMOGLOBIN 12.3 g/dL (10.9-14.3); LYMPHOCYTES # (AUTO) 2.4 K/uL (0.8-4.8); LYMPHOCYTES % (AUTO) 45.2 % (20.5-51.5); MAGNESIUM 2.1 mg/dL (1.8-2.4); MEAN CORPUSCULAR HEMOGLOBIN 27.1 uug (24.7-32.8); MEAN CORPUSCULAR HGB CONC 33 g/dL (32.3-35.6); MEAN CORPUSCULAR VOLUME 82.1 fL (75.5-95.3); MONOCYTES # (AUTO) 0.4 K/uL (0.1-1.30); MONOCYTES % (AUTO) 8.1 % (0.0-11.0); NEUTROPHILS # (AUTO) 2.3 K/uL (1.8-8.9); NEUTROPHILS % (AUTO) 43.1 % (38.5-71.5); PHOSPHOROUS 3.5 mg/dL (2.5-4.9); PLATELET COUNT (AUTO) 236 K/uL (179-408); POTASSIUM 4.4 mmol/L (3.5-5.1); RED BLOOD CELL COUNT(AUTO) 4.53 MIL/uL (3.63-4.92); RED CELL DISTRIBUTION WIDTH 14.1 % (12.3-17.7); WHITE BLOOD COUNT (AUTO) 5.4 K/uL (3.8-11.8)
[2023-09-02 07:54] LABS: DIFFERENTIAL COMMENT 1
[2023-09-02 08:00] VITALS: BP 113/60; TEMP 98.2
[2023-09-02] MEDS ORDERED: CARBAMAZEPINE 200 MG TABLET PO SCH ×3 (09:00→21:00)
[2023-09-02] MEDS: ASPIRIN EC 81 MG TABLET.DR PO SCH (09:40)
[2023-09-02] MEDS: levETIRAcetam 500 MG TABLET PO SCH (09:40)
[2023-09-02] MEDS: GABAPENTIN 300 MG CAPSULE PO SCH (09:40)
[2023-09-02] MEDS ORDERED: ACETAMINOPHEN 325 MG TABLET PO PRN (10:30)
[2023-09-02] MEDS ORDERED: METFORMIN HCL 500 MG TABLET PO SCH (11:00)
[2023-09-02 11:08] VITALS: BP 122/93; TEMP 98.2; O2SAT 97
[2023-09-02] MEDS ORDERED: CARB200T8 PO (13:03)
[2023-09-02] MEDS ORDERED: GADOTERATE MEGLUMINE 10 MMOL/20 ML VIAL IV ONE (14:34)
== END 2023-09-02 14:35 | disposition home or self-care (01) | DRG 69 ==
LOC: ER 12:07 → TELE3 20:38 → MEDSURG3 09-01 09:10
PROVIDERS: ADMIT Student in an Organized Health Care Education/Training Program; ATTEND Internal Medicine
DX: G45.9 Transient cerebral ischemic attack, unspecified (principal); Q04.6 Congenital cerebral cysts; H81.10 Benign paroxysmal vertigo, unspecified ear; E78.5 Hyperlipidemia, unspecified; F41.9 Anxiety disorder, unspecified; G40.909 Epilepsy, unspecified, not intractable, without status epilepticus; I10 Essential (primary) hypertension; Z79.4 Long term (current) use of insulin; Z79.82 Long term (current) use of aspirin; Z79.84 Long term (current) use of oral hypoglycemic drugs; R47.81 Slurred speech; T42.1X5A Adverse effect of iminostilbenes, initial encounter; Y92.009 Unspecified place in unspecified non-institutional (private) residence as the place of occurrence of the external cause; Z83.3 Family history of diabetes mellitus; E11.65 Type 2 diabetes mellitus with hyperglycemia; E66.9 Obesity, unspecified; Z68.31 Body mass index [BMI] 31.0-31.9, adult; G93.89 Other specified disorders of brain; Z86.73 Personal history of transient ischemic attack (TIA), and cerebral infarction without residual deficits; R53.1 Weakness
CPT/HCPCS: 36415; 70030-TC; 70450; 70553; 71045; 83735; 84100; 84443; 84484; 85025; 85651; 85730; 93005; 93307; A4606; A4663; A9575; C9113; G0378; J1650; J1815; J7040; J8597

== ENCOUNTER 2024-12-17 10:17 | Emergency (ER) | payer MEDICARE, OTHER ==
[~2024-12-17] VITALS: Ht 152.4 cm; Wt 70.3 kg
[~2024-12-17 10:17] MED LIST changes: +CARB200C6 PO; +CARB200T8 PO; -GLIM4TAB37 PO; -METH4TAB3 PO
[2024-12-17 12:47] VITALS: BP 147/71; TEMP 98.2; O2SAT 98
== END 2024-12-17 12:47 | disposition home or self-care (01) ==
LOC: ER 10:17
DX: S60.221A Contusion of right hand, initial encounter (principal); M23.91 Unspecified internal derangement of right knee; E11.9 Type 2 diabetes mellitus without complications; G40.909 Epilepsy, unspecified, not intractable, without status epilepticus; Z79.4 Long term (current) use of insulin; Z79.82 Long term (current) use of aspirin; Z79.84 Long term (current) use of oral hypoglycemic drugs; Z79.899 Other long term (current) drug therapy; Z86.73 Personal history of transient ischemic attack (TIA), and cerebral infarction without residual deficits; Z88.7 Allergy status to serum and vaccine; W18.30XA Fall on same level, unspecified, initial encounter; Y93.89 Activity, other specified; Y92.89 Other specified places as the place of occurrence of the external cause; Y99.8 Other external cause status
CPT/HCPCS: 73130; 73562; A4606; A4663